=== PATIENT | male | born 1975 | race Caucasian/White ===

== ENCOUNTER 2022-02-01 11:27 | Inpatient (IN) | payer MEDICAID ==
[~2022-02-01] VITALS: Ht 154.9 cm; Wt 54.0 kg
[2022-02-01 11:36] VITALS: BP_SYST 122
[2022-02-01] MEDS ORDERED: NACL 0.9% 1,000 ML IV ONE ×3 (12:15→14:15)
[2022-02-01 12:38] LABS: BASOPHILS % (AUTO) 0.2 % (0.0-2.0); HEMATOCRIT 49.1 % (36-54); HEMOGLOBIN 16.9 g/dL (14.0-18.0); LYMPHOCYTES # (AUTO) 0.4 K/uL (1.0-5.5); LYMPHOCYTES % (AUTO) 2.9 % (20.5-51.5); MEAN CORPUSCULAR HEMOGLOBIN 31 pg (27-31); MEAN CORPUSCULAR HGB CONC 35 % (32-36); MEAN CORPUSCULAR VOLUME 89 fL (79.0-98.0); MONOCYTES # (AUTO) 0.5 K/uL (0.0-1.0); MONOCYTES % (AUTO) 3.6 % (1.7-9.3); NEUTROPHILS # (AUTO) 11.7 K/uL (1.8-7.7); NEUTROPHILS % (AUTO) 93.3 % (40.0-70.0); PLATELET COUNT (AUTO) 217 K/uL (130-430); RED BLOOD CELL COUNT(AUTO) 5.54 MIL/uL (4.2-6.2); WHITE BLOOD COUNT (AUTO) 12.5 K/uL (4.8-10.8)
[2022-02-01 13:16] LABS: ANION GAP 17 (5-15); CALCIUM 8.6 mg/dL (8.4-11.0); CHLORIDE 93 mmol/L (98-107); CREATININE 1.22 mg/dL (0.55-1.30); UREA NITROGEN, BLOOD 51 mg/dL (8-21)
[2022-02-01 13:20] LABS: ALANINE AMINOTRANSFERASE 49 U/L (12-78); ALBUMIN 3.9 g/dL (3.4-4.8); ASPARTATE AMINOTRANSFERASE 26 U/L (10-37); TOTAL BILIRUBIN 0.9 mg/dL (0.0-1.0)
[2022-02-01 13:25] LABS: ALCOHOL, BLOOD < 3 mg/dL (<10); GFR AFRICAN AMERICAN 82 mL/min (>90)
[2022-02-01 13:31] LABS: GLUCOSE 567 mg/dL (70-99)
[2022-02-01] MEDS ORDERED: cefTRIAXone 1 GM IVPB PREMIX 50 ML IV ONE (14:15)
[2022-02-01] MEDS ORDERED: INSULIN REGULAR, HUMAN 100 UNITS/ML, 3 ML VIAL IV ONE (14:15)
[2022-02-01] MEDS ORDERED: DEXTROSE 50% JECT 50 ML DISP.SYRIN IVP PRN (14:15)
[2022-02-01] MEDS ORDERED: INSULIN NPH 100 UNITS/ML 10 ML VIAL SUBCUT ONE (14:15)
[2022-02-01 14:43] LABS: BILIRUBIN,URINE NEGATIVE (NEGATIVE); BLOOD, URINE NEGATIVE (NEGATIVE); CLARITY/URINE CLEAR (CLEAR); COLOR,URINE YELLOW (YELLOW); GLUCOSE,URINE 3+ (NEGATIVE); KETONES,URINE 1+ (NEGATIVE); LEUKOCYTE ESTERASE ,URINE NEGATIVE (NEGATIVE); NITRITE, URINE NEGATIVE (NEGATIVE); PH,URINE 5.5 (5.0-8.0); PROTEIN URINE NEGATIVE (NEGATIVE); UROBILINOGEN,URINE 0.2 (0.2-1.0)
[2022-02-01] MEDS ORDERED: LORazepam 2 MG/ML VIAL IM ONE ×2 (14:45→15:30)
[2022-02-01 14:55] LABS: BARBITURATE, URINE NEGATIVE (NEG <=200); BENZODIAZEPINE, URINE NEGATIVE (NEG <=150); CANNABINOID, URINE NEGATIVE (NEG <=50); COCAINE, URINE NEGATIVE (NEG <=150); METHAMPHETAMINES SCREEN,URINE NEGATIVE (NEG <=500); OPIATE, URINE NEGATIVE (NEG <=100); PHENCYCLIDINE SCREEN,URINE NEGATIVE (NEG <=25); UR TRICYCLIC ANTIDEPRESSANTS NEGATIVE (NEG <=300); URINE AMPHETAMINE NEGATIVE (NEG <=500); URINE METHADONE NEGATIVE (NEG <=200); URINE OXYCODONE SCREEN NEGATIVE (NEG <=100); URINE PROPOXYPHENE SCREEN NEGATIVE (NEG <=300)
[2022-02-01 14:56] LABS: BACTERIA,URINE None Seen /HPF (None Seen); MUCUS,URINE None Seen /LPF (None Seen); RBC,URINE 0-3 /HPF (0-3); WBC,URINE NONE SEEN /HPF (0-3)
[2022-02-01] MEDS ORDERED: HALOPERIDOL LACTATE 5 MG/ML VIAL IM ONE (15:30)
[2022-02-01] MEDS ORDERED: LORazepam 2 MG/ML VIAL ONE (15:35)
[2022-02-01] MEDS ORDERED: HALOPERIDOL LACTATE 5 MG/ML VIAL ONE (15:35)
[2022-02-01] MEDS ORDERED: BENZTROPINE MESYLATE 2 MG/ 2 ML AMP ONE (15:37)
[2022-02-01] MEDS ORDERED: BENZTROPINE MESYLATE 2 MG/ 2 ML AMP IM ONE (15:45)
[2022-02-01 17:31] LABS: CALCIUM 8.2 mg/dL (8.4-11.0); CREATININE 1.43 mg/dL (0.55-1.30)
[2022-02-01] MEDS ORDERED: AZITHROMYCIN 500 MG/VIAL (ZITHROMAX) IV ONE (19:10)
[2022-02-01] MEDS: AZITHROMYCIN 500 MG in NS 250 ML IV SCH (19:27)
[2022-02-01] MEDS: NACL 0.9% 1,000 ML IV SCH (21:49)
[2022-02-01 22:50] VITALS: BP_SYST 116
[2022-02-01] MEDS ORDERED: CETI10CA20 PO (23:18)
[2022-02-01] MEDS ORDERED: LISI10TA29 PO (23:18)
[2022-02-01] MEDS ORDERED: FAMO40TA7 PO (23:18)
[2022-02-01] MEDS ORDERED: METF-518 PO (23:18)
[2022-02-01] MEDS ORDERED: BUSP10TA3 PO (23:18)
[2022-02-01] MEDS ORDERED: ASCO500T20 PO (23:18)
[2022-02-01] MEDS ORDERED: TRAZ-250 PO (23:18)
[2022-02-01] MEDS ORDERED: ZINC220T4 PO (23:18)
[2022-02-01] MEDS ORDERED: MULT-1089 PO (23:18)
[2022-02-01] MEDS ORDERED: IBUP-1619 PO (23:18)
[2022-02-01] MEDS ORDERED: ACET325T53 PO (23:18)
[2022-02-01] MEDS ORDERED: CAT1PAT PO (23:18)
[2022-02-01] MEDS ORDERED: ALBU90AE2 INH (23:18)
[2022-02-02 00:20] VITALS: BP_SYST 115
[2022-02-02] MEDS: INSULIN REGULAR, HUMAN 100 UNITS/ML, 3 ML VIAL (humuLIN R) SUBCUT PRN ×3 (01:45→17:43)
[2022-02-02] MEDS: NACL 0.9% 1,000 ML IV SCH ×4 (02:15→22:24)
[2022-02-02] MEDS: LORazepam 2 MG/ML VIAL IVP PRN (02:54)
[2022-02-02 07:01] LABS: BASOPHILS % (AUTO) 0.1 % (0.0-2.0); HEMATOCRIT 45.5 % (36-54); HEMOGLOBIN 15.7 g/dL (14.0-18.0); LYMPHOCYTES # (AUTO) 0.8 K/uL (1.0-5.5); MEAN CORPUSCULAR HEMOGLOBIN 31 pg (27-31); MEAN CORPUSCULAR HGB CONC 35 % (32-36); MEAN CORPUSCULAR VOLUME 88 fL (79.0-98.0); MONOCYTES # (AUTO) 1.1 K/uL (0.0-1.0); MONOCYTES % (AUTO) 5.7 % (1.7-9.3); NEUTROPHILS # (AUTO) 17.7 K/uL (1.8-7.7); PLATELET COUNT (AUTO) 197 K/uL (130-430); RED BLOOD CELL COUNT(AUTO) 5.15 MIL/uL (4.2-6.2); RED CELL DISTRIBUTION WIDTH 12.9 % (9.0-15.0); WHITE BLOOD COUNT (AUTO) 19.6 K/uL (4.8-10.8)
[2022-02-02] MEDS ORDERED: METF-381 PO (07:03)
[2022-02-02] MEDS ORDERED: CLON0.1T PO (07:07)
[2022-02-02 07:15] LABS: ALBUMIN 3.2 g/dL (3.4-4.8); CALCIUM 7.5 mg/dL (8.4-11.0); PHOSPHORUS 2.7 mg/dL (2.7-4.5); TOTAL BILIRUBIN 0.7 mg/dL (0.0-1.0)
[2022-02-02 07:38] LABS: CREATININE 0.75 mg/dL (0.55-1.30)
[2022-02-02 11:44] VITALS: BP_SYST 131
[2022-02-02] MEDS ORDERED: IBUPROFEN 200 MG TABLET PO SCH (12:15)
[2022-02-02] MEDS ORDERED: ACETAMINOPHEN 325 MG TABLET PO PRN (12:15)
[2022-02-02] MEDS ORDERED: cloNIDine HCL 0.1 MG TABLET PO ONE (12:30)
[2022-02-02] MEDS ORDERED: busPIRone HCL 5 MG TABLET PO ONE (12:30)
[2022-02-02] MEDS ORDERED: LISINOPRIL 10 MG TABLET (PRINIVIL) PO ONE (12:30)
[2022-02-02] MEDS ORDERED: FAMOTIDINE 20 MG TABLET PO ONE (12:30)
[2022-02-02 13:04] LABS: NEUTROPHILS % (AUTO) 90.2 % (40.0-70.0)
[2022-02-02] MEDS: AZITHROMYCIN 500 MG in NS 250 ML IV SCH (17:25)
[2022-02-02] MEDS: busPIRone HCL 5 MG TABLET PO SCH ×2 (17:25→21:21)
[2022-02-02] MEDS: cefTRIAXone 1 GM in D5W 50 ML IV SCH (17:26)
[2022-02-02 18:02] VITALS: BP_SYST 100
[2022-02-02] MEDS ORDERED: traZODone HCL 50 MG TABLET (DESYREL) PO SCH (21:00)
[2022-02-02] MEDS: cloNIDine HCL 0.1 MG TABLET PO SCH (21:22)
[2022-02-02] MEDS: ASCORBIC ACID 500 MG TABLET PO SCH (21:22)
[2022-02-03 00:40] VITALS: BP_SYST 102
[2022-02-03 07:19] LABS: BASOPHILS % (AUTO) 0.3 % (0.0-2.0); EOSINOPHILS % (AUTO) 0.2 % (0.0-4.0); HEMATOCRIT 48.5 % (36-54); HEMOGLOBIN 16.7 g/dL (14.0-18.0); LYMPHOCYTES # (AUTO) 2.2 K/uL (1.0-5.5); MEAN CORPUSCULAR HEMOGLOBIN 31 pg (27-31); MEAN CORPUSCULAR HGB CONC 35 % (32-36); MEAN CORPUSCULAR VOLUME 88 fL (79.0-98.0); MONOCYTES # (AUTO) 0.8 K/uL (0.0-1.0); MONOCYTES % (AUTO) 4.5 % (1.7-9.3); PLATELET COUNT (AUTO) 162 K/uL (130-430); RED BLOOD CELL COUNT(AUTO) 5.49 MIL/uL (4.2-6.2); RED CELL DISTRIBUTION WIDTH 12.8 % (9.0-15.0); WHITE BLOOD COUNT (AUTO) 17.1 K/uL (4.8-10.8)
[2022-02-03 07:54] LABS: CALCIUM 7.7 mg/dL (8.4-11.0); CREATININE 0.72 mg/dL (0.55-1.30)
[2022-02-03 08:00] VITALS: BP_SYST 140
[2022-02-03] MEDS ORDERED: [UNRECOGNIZED DRUG - REMARK] PO SCH (09:00)
[2022-02-03] MEDS: cloNIDine HCL 0.1 MG TABLET PO SCH ×2 (10:27→20:15)
[2022-02-03] MEDS: ASCORBIC ACID 500 MG TABLET PO SCH ×2 (10:28→20:15)
[2022-02-03] MEDS: busPIRone HCL 5 MG TABLET PO SCH ×3 (10:28→20:15)
[2022-02-03] MEDS: MULTIVITAMINS TAB 1 TABLET PO SCH (10:28)
[2022-02-03] MEDS: FAMOTIDINE 20 MG TABLET PO SCH (10:29)
[2022-02-03] MEDS: LORATADINE 10 MG TABLET PO SCH (10:29)
[2022-02-03] MEDS: LISINOPRIL 10 MG TABLET (PRINIVIL) PO SCH (10:29)
[2022-02-03 11:28] VITALS: BP_SYST 103
[2022-02-03] MEDS: NACL 0.9% 1,000 ML IV SCH ×2 (12:23→18:52)
[2022-02-03] MEDS: INSULIN REGULAR, HUMAN 100 UNITS/ML, 3 ML VIAL (humuLIN R) SUBCUT PRN ×2 (12:40→18:53)
[2022-02-03] MEDS ORDERED: INSULIN NPH 100 UNITS/ML 10 ML VIAL SUBCUT SCH (13:15)
[2022-02-03] MEDS ORDERED: FAMO40TA7 PO (13:28)
[2022-02-03] MEDS ORDERED: BLOO-1360 XX (13:28)
[2022-02-03] MEDS ORDERED: INSU100V7 SUBCUT (13:28)
[2022-02-03] MEDS ORDERED: busPIRone HCL 5 MG TABLET PO SCH (15:00)
[2022-02-03 15:25] VITALS: BP_SYST 144
[2022-02-03] MEDS: INSULIN NPH 100 UNITS/ML 10 ML VIAL SUBCUT SCH (17:00)
[2022-02-03] MEDS: AZITHROMYCIN 500 MG in NS 250 ML IV SCH (18:50)
[2022-02-03] MEDS: traZODone HCL 50 MG TABLET (DESYREL) PO SCH (18:50)
[2022-02-03] MEDS: cefTRIAXone 1 GM in D5W 50 ML IV SCH (18:51)
[2022-02-03 20:00] VITALS: BP_SYST 108
[2022-02-04 00:19] VITALS: BP_SYST 110
[2022-02-04] MEDS: INSULIN NPH 100 UNITS/ML 10 ML VIAL SUBCUT SCH ×2 (05:25→17:25)
[2022-02-04 06:46] LABS: BASOPHILS % (AUTO) 0.1 % (0.0-2.0); EOSINOPHILS % (AUTO) 0.1 % (0.0-4.0); HEMATOCRIT 50.6 % (36-54); HEMOGLOBIN 17.5 g/dL (14.0-18.0); LYMPHOCYTES # (AUTO) 1.3 K/uL (1.0-5.5); LYMPHOCYTES % (AUTO) 8.1 % (20.5-51.5); MEAN CORPUSCULAR HEMOGLOBIN 31 pg (27-31); MEAN CORPUSCULAR HGB CONC 35 % (32-36); MEAN CORPUSCULAR VOLUME 88 fL (79.0-98.0); MONOCYTES # (AUTO) 0.7 K/uL (0.0-1.0); MONOCYTES % (AUTO) 4.2 % (1.7-9.3); NEUTROPHILS # (AUTO) 14.1 K/uL (1.8-7.7); NEUTROPHILS % (AUTO) 87.5 % (40.0-70.0); PLATELET COUNT (AUTO) 157 K/uL (130-430); RED BLOOD CELL COUNT(AUTO) 5.73 MIL/uL (4.2-6.2); WHITE BLOOD COUNT (AUTO) 16.1 K/uL (4.8-10.8)
[2022-02-04 07:03] LABS: CALCIUM 8.3 mg/dL (8.4-11.0); CREATININE 0.68 mg/dL (0.55-1.30)
[2022-02-04 08:00] VITALS: BP_SYST 131
[2022-02-04] MEDS: LORATADINE 10 MG TABLET PO SCH (09:13)
[2022-02-04] MEDS: MULTIVITAMINS TAB 1 TABLET PO SCH (09:13)
[2022-02-04] MEDS: cloNIDine HCL 0.1 MG TABLET PO SCH ×2 (09:16→20:30)
[2022-02-04] MEDS: FAMOTIDINE 20 MG TABLET PO SCH (09:16)
[2022-02-04] MEDS: busPIRone HCL 5 MG TABLET PO SCH ×3 (09:16→20:29)
[2022-02-04] MEDS: LISINOPRIL 10 MG TABLET (PRINIVIL) PO SCH (09:17)
[2022-02-04] MEDS: ASCORBIC ACID 500 MG TABLET PO SCH ×2 (09:17→20:29)
[2022-02-04] MEDS: INSULIN REGULAR, HUMAN 100 UNITS/ML, 3 ML VIAL (humuLIN R) SUBCUT PRN ×2 (11:42→17:24)
[2022-02-04 12:00] VITALS: BP_SYST 121
[2022-02-04] MEDS: cefTRIAXone 1 GM in D5W 50 ML IV SCH (14:18)
[2022-02-04] MEDS: AZITHROMYCIN 500 MG in NS 250 ML IV SCH (15:45)
[2022-02-04 16:00] VITALS: BP_SYST 116
[2022-02-04] MEDS: traZODone HCL 50 MG TABLET (DESYREL) PO SCH (17:27)
[2022-02-04 20:00] VITALS: BP_SYST 145
[2022-02-04] MEDS: NACL 0.9% 1,000 ML IV SCH ×2 (20:28→20:32)
[2022-02-05] MEDS: NACL 0.9% 1,000 ML IV SCH ×2 (00:40→11:19)
[2022-02-05 01:06] VITALS: BP_SYST 107
[2022-02-05] MEDS: INSULIN NPH 100 UNITS/ML 10 ML VIAL SUBCUT SCH ×2 (06:37→17:35)
[2022-02-05 08:00] VITALS: BP_SYST 134
[2022-02-05] MEDS: LISINOPRIL 10 MG TABLET (PRINIVIL) PO SCH (08:57)
[2022-02-05] MEDS: MULTIVITAMINS TAB 1 TABLET PO SCH (08:58)
[2022-02-05] MEDS: FAMOTIDINE 20 MG TABLET PO SCH (08:58)
[2022-02-05] MEDS: busPIRone HCL 5 MG TABLET PO SCH ×3 (08:58→21:14)
[2022-02-05] MEDS: ASCORBIC ACID 500 MG TABLET PO SCH ×2 (08:58→21:13)
[2022-02-05] MEDS: cloNIDine HCL 0.1 MG TABLET PO SCH ×2 (08:58→21:14)
[2022-02-05] MEDS: LORATADINE 10 MG TABLET PO SCH (08:59)
[2022-02-05 12:00] VITALS: BP_SYST 142
[2022-02-05 12:51] LABS: BASOPHILS # (AUTO) 0.1 K/uL (0.0-0.2); BASOPHILS % (AUTO) 0.6 % (0.0-2.0); EOSINOPHILS # (AUTO) 0.1 K/uL (0.0-0.4); EOSINOPHILS % (AUTO) 0.5 % (0.0-4.0); HEMATOCRIT 46.4 % (36-54); HEMOGLOBIN 16.4 g/dL (14.0-18.0); LYMPHOCYTES # (AUTO) 1.7 K/uL (1.0-5.5); LYMPHOCYTES % (AUTO) 8.6 % (20.5-51.5); MEAN CORPUSCULAR HEMOGLOBIN 31 pg (27-31); MEAN CORPUSCULAR HGB CONC 35 % (32-36); MEAN CORPUSCULAR VOLUME 87 fL (79.0-98.0); MONOCYTES # (AUTO) 0.7 K/uL (0.0-1.0); MONOCYTES % (AUTO) 3.3 % (1.7-9.3); NEUTROPHILS # (AUTO) 17.5 K/uL (1.8-7.7); PLATELET COUNT (AUTO) 164 K/uL (130-430); RED BLOOD CELL COUNT(AUTO) 5.36 MIL/uL (4.2-6.2); RED CELL DISTRIBUTION WIDTH 12.4 % (9.0-15.0); WHITE BLOOD COUNT (AUTO) 20.1 K/uL (4.8-10.8)
[2022-02-05 13:06] LABS: CALCIUM 8.4 mg/dL (8.4-11.0); CREATININE 0.69 mg/dL (0.55-1.30)
[2022-02-05 16:00] VITALS: BP_SYST 157
[2022-02-05] MEDS: cephALEXin 500 MG CAPSULE PO SCH ×2 (17:29→23:32)
[2022-02-05] MEDS: traZODone HCL 50 MG TABLET (DESYREL) PO SCH (17:29)
[2022-02-05] MEDS: INSULIN REGULAR, HUMAN 100 UNITS/ML, 3 ML VIAL (humuLIN R) SUBCUT PRN (17:34)
[2022-02-05 20:00] VITALS: BP_SYST 129
[2022-02-05] MEDS: LORazepam 2 MG/ML VIAL IVP PRN (21:16)
[2022-02-06 00:34] VITALS: BP_SYST 110; BP_SYST 68
[2022-02-06 04:00] VITALS: BP_SYST 137
[2022-02-06] MEDS: cephALEXin 500 MG CAPSULE PO SCH ×4 (05:51→23:52)
[2022-02-06] MEDS: INSULIN NPH 100 UNITS/ML 10 ML VIAL SUBCUT SCH ×2 (06:28→17:00)
[2022-02-06 07:04] LABS: BASOPHILS # (AUTO) 0.1 K/uL (0.0-0.2); BASOPHILS % (AUTO) 0.3 % (0.0-2.0); EOSINOPHILS # (AUTO) 0.1 K/uL (0.0-0.4); EOSINOPHILS % (AUTO) 0.5 % (0.0-4.0); HEMATOCRIT 44.8 % (36-54); HEMOGLOBIN 15.6 g/dL (14.0-18.0); LYMPHOCYTES # (AUTO) 2.1 K/uL (1.0-5.5); MEAN CORPUSCULAR HEMOGLOBIN 30 pg (27-31); MEAN CORPUSCULAR HGB CONC 35 % (32-36); MEAN CORPUSCULAR VOLUME 87 fL (79.0-98.0); MONOCYTES # (AUTO) 0.7 K/uL (0.0-1.0); MONOCYTES % (AUTO) 3.4 % (1.7-9.3); NEUTROPHILS # (AUTO) 17.9 K/uL (1.8-7.7); NEUTROPHILS % (AUTO) 85.8 % (40.0-70.0); PLATELET COUNT (AUTO) 170 K/uL (130-430); RED BLOOD CELL COUNT(AUTO) 5.15 MIL/uL (4.2-6.2); RED CELL DISTRIBUTION WIDTH 12.6 % (9.0-15.0); WHITE BLOOD COUNT (AUTO) 20.9 K/uL (4.8-10.8)
[2022-02-06 07:55] LABS: CALCIUM 8.6 mg/dL (8.4-11.0); CREATININE 0.74 mg/dL (0.55-1.30)
[2022-02-06 08:00] VITALS: BP_SYST 154
[2022-02-06] MEDS: LISINOPRIL 10 MG TABLET (PRINIVIL) PO SCH (09:52)
[2022-02-06] MEDS: MULTIVITAMINS TAB 1 TABLET PO SCH (09:53)
[2022-02-06] MEDS: cloNIDine HCL 0.1 MG TABLET PO SCH ×2 (09:53→22:17)
[2022-02-06] MEDS: ASCORBIC ACID 500 MG TABLET PO SCH ×2 (09:54→22:17)
[2022-02-06] MEDS: LORATADINE 10 MG TABLET PO SCH (09:56)
[2022-02-06] MEDS: FAMOTIDINE 20 MG TABLET PO SCH (09:59)
[2022-02-06] MEDS: busPIRone HCL 5 MG TABLET PO SCH ×3 (09:59→22:17)
[2022-02-06 11:22] VITALS: BP_SYST 155
[2022-02-06 16:21] VITALS: BP_SYST 149
[2022-02-06] MEDS: traZODone HCL 50 MG TABLET (DESYREL) PO SCH (17:41)
[2022-02-06 20:00] VITALS: BP_SYST 150
[2022-02-07] MEDS: cephALEXin 500 MG CAPSULE PO SCH ×2 (07:05→12:47)
[2022-02-07] MEDS: INSULIN NPH 100 UNITS/ML 10 ML VIAL SUBCUT SCH (07:07)
[2022-02-07 07:36] LABS: CALCIUM 8.6 mg/dL (8.4-11.0); CREATININE 0.81 mg/dL (0.55-1.30)
[2022-02-07 08:00] VITALS: BP_SYST 126
[2022-02-07] MEDS: MULTIVITAMINS TAB 1 TABLET PO SCH (08:21)
[2022-02-07] MEDS: LORATADINE 10 MG TABLET PO SCH (08:21)
[2022-02-07] MEDS: ASCORBIC ACID 500 MG TABLET PO SCH ×2 (08:22→21:23)
[2022-02-07] MEDS: busPIRone HCL 5 MG TABLET PO SCH ×3 (08:22→21:24)
[2022-02-07] MEDS: LISINOPRIL 10 MG TABLET (PRINIVIL) PO SCH (08:22)
[2022-02-07] MEDS: FAMOTIDINE 20 MG TABLET PO SCH (08:22)
[2022-02-07] MEDS: cloNIDine HCL 0.1 MG TABLET PO SCH ×2 (08:23→21:23)
[2022-02-07 08:24] LABS: BASOPHILS % (AUTO) 0.3 % (0.0-2.0); EOSINOPHILS # (AUTO) 0.1 K/uL (0.0-0.4); EOSINOPHILS % (AUTO) 0.5 % (0.0-4.0); HEMOGLOBIN 16.2 g/dL (14.0-18.0); LYMPHOCYTES # (AUTO) 2.2 K/uL (1.0-5.5); LYMPHOCYTES % (AUTO) 11.9 % (20.5-51.5); MEAN CORPUSCULAR HEMOGLOBIN 31 pg (27-31); MEAN CORPUSCULAR HGB CONC 35 % (32-36); MEAN CORPUSCULAR VOLUME 88 fL (79.0-98.0); MONOCYTES # (AUTO) 0.9 K/uL (0.0-1.0); MONOCYTES % (AUTO) 4.7 % (1.7-9.3); NEUTROPHILS % (AUTO) 82.6 % (40.0-70.0); PLATELET COUNT (AUTO) 169 K/uL (130-430); RED BLOOD CELL COUNT(AUTO) 5.26 MIL/uL (4.2-6.2); RED CELL DISTRIBUTION WIDTH 12.7 % (9.0-15.0); WHITE BLOOD COUNT (AUTO) 18.2 K/uL (4.8-10.8)
[2022-02-07] MEDS ORDERED: GLIP5TAB13 PO (11:31)
[2022-02-07 11:33] VITALS: BP_SYST 148
[2022-02-07] MEDS ORDERED: CEPH-548 PO (11:34)
[2022-02-07 15:30] VITALS: BP_SYST 98
[2022-02-07] MEDS: traZODone HCL 50 MG TABLET (DESYREL) PO SCH (18:16)
[2022-02-07 20:00] VITALS: BP_SYST 136
[2022-02-08 08:00] VITALS: BP_SYST 133
[2022-02-08] MEDS: MULTIVITAMINS TAB 1 TABLET PO SCH (08:19)
[2022-02-08] MEDS: LISINOPRIL 10 MG TABLET (PRINIVIL) PO SCH (08:20)
[2022-02-08] MEDS: FAMOTIDINE 20 MG TABLET PO SCH (08:20)
[2022-02-08] MEDS: LORATADINE 10 MG TABLET PO SCH (08:20)
[2022-02-08] MEDS: ASCORBIC ACID 500 MG TABLET PO SCH (08:20)
[2022-02-08] MEDS: busPIRone HCL 5 MG TABLET PO SCH ×2 (08:20→14:06)
[2022-02-08] MEDS: cloNIDine HCL 0.1 MG TABLET PO SCH ×2 (08:21→20:46)
[2022-02-08 11:38] VITALS: BP_SYST 111
[2022-02-08 13:44] LABS: BASOPHILS % (AUTO) 0.2 % (0.0-2.0); EOSINOPHILS # (AUTO) 0.1 K/uL (0.0-0.4); EOSINOPHILS % (AUTO) 0.3 % (0.0-4.0); HEMATOCRIT 48.1 % (36-54); HEMOGLOBIN 16.6 g/dL (14.0-18.0); LYMPHOCYTES # (AUTO) 1.7 K/uL (1.0-5.5); LYMPHOCYTES % (AUTO) 10.3 % (20.5-51.5); MEAN CORPUSCULAR HEMOGLOBIN 30 pg (27-31); MEAN CORPUSCULAR HGB CONC 35 % (32-36); MEAN CORPUSCULAR VOLUME 87 fL (79.0-98.0); MONOCYTES # (AUTO) 1.3 K/uL (0.0-1.0); MONOCYTES % (AUTO) 7.6 % (1.7-9.3); NEUTROPHILS # (AUTO) 13.6 K/uL (1.8-7.7); NEUTROPHILS % (AUTO) 81.6 % (40.0-70.0); PLATELET COUNT (AUTO) 194 K/uL (130-430); RED BLOOD CELL COUNT(AUTO) 5.53 MIL/uL (4.2-6.2); RED CELL DISTRIBUTION WIDTH 12.7 % (9.0-15.0); WHITE BLOOD COUNT (AUTO) 16.6 K/uL (4.8-10.8)
[2022-02-08 15:24] VITALS: BP_SYST 115
[2022-02-08 16:41] VITALS: BP_SYST 115
[2022-02-08] MEDS ORDERED: cloNIDine HCL 0.1 MG TABLET PO PRN (17:15)
[2022-02-08] MEDS: traZODone HCL 50 MG TABLET (DESYREL) PO SCH (18:14)
[2022-02-08 20:41] VITALS: BP_SYST 120
[2022-02-08] MEDS: LORazepam 2 MG/ML VIAL IVP PRN (20:48)
[2022-02-09 02:24] VITALS: BP_SYST 85
[2022-02-09 06:55] LABS: BASOPHILS % (AUTO) 0.4 % (0.0-2.0); EOSINOPHILS # (AUTO) 0.1 K/uL (0.0-0.4); EOSINOPHILS % (AUTO) 0.6 % (0.0-4.0); HEMATOCRIT 47.4 % (36-54); HEMOGLOBIN 16.6 g/dL (14.0-18.0); LYMPHOCYTES # (AUTO) 1.8 K/uL (1.0-5.5); LYMPHOCYTES % (AUTO) 15.5 % (20.5-51.5); MEAN CORPUSCULAR HEMOGLOBIN 31 pg (27-31); MEAN CORPUSCULAR HGB CONC 35 % (32-36); MEAN CORPUSCULAR VOLUME 87 fL (79.0-98.0); MONOCYTES # (AUTO) 0.8 K/uL (0.0-1.0); MONOCYTES % (AUTO) 6.6 % (1.7-9.3); NEUTROPHILS # (AUTO) 8.9 K/uL (1.8-7.7); NEUTROPHILS % (AUTO) 76.9 % (40.0-70.0); PLATELET COUNT (AUTO) 191 K/uL (130-430); RED BLOOD CELL COUNT(AUTO) 5.43 MIL/uL (4.2-6.2); RED CELL DISTRIBUTION WIDTH 12.6 % (9.0-15.0); WHITE BLOOD COUNT (AUTO) 11.6 K/uL (4.8-10.8)
[2022-02-09 07:04] LABS: ALBUMIN 3.1 g/dL (3.4-4.8); C-REACTIVE PROTEIN QUANT 0.7 mg/dL (0-0.5); CALCIUM 8.4 mg/dL (8.4-11.0); CREATININE 0.92 mg/dL (0.55-1.30); TOTAL BILIRUBIN 0.4 mg/dL (0.0-1.0)
[2022-02-09 08:00] VITALS: BP_SYST 125
[2022-02-09] MEDS: MULTIVITAMINS TAB 1 TABLET PO SCH (08:58)
[2022-02-09] MEDS: cloNIDine HCL 0.1 MG TABLET PO SCH (09:00)
[2022-02-09] MEDS ORDERED: FAMOTIDINE 20 MG TABLET PO SCH (09:00)
[2022-02-09 11:24] VITALS: BP_SYST 103
[2022-02-09 11:43] LABS: ERYTHROCYTE SEDIMENTATION RATE 7 MM/HR (0-15)
[2022-02-09] MEDS ORDERED: FLUCONAZOLE 100 mg/ NS 50 ML IV SCH (13:00)
== END 2022-02-09 14:15 | DRG 420 ==
LOC: SED 11:27 → SIC 14:07 → STU 22:20 → SMU 02-02 10:28
PROVIDERS: ADMIT Internal Medicine; ATTEND Internal Medicine
DX: E11.10 Type 2 diabetes mellitus with ketoacidosis without coma (principal); N17.0 Acute kidney failure with tubular necrosis; E44.1 Mild protein-calorie malnutrition; E87.1 Hypo-osmolality and hyponatremia; E86.0 Dehydration; I48.0 Paroxysmal atrial fibrillation; J18.9 Pneumonia, unspecified organism; E55.9 Vitamin D deficiency, unspecified; E87.5 Hyperkalemia; Z20.822 Contact with and (suspected) exposure to COVID-19; J02.9 Acute pharyngitis, unspecified; J45.909 Unspecified asthma, uncomplicated; U09.9 Post COVID-19 condition, unspecified; F79 Unspecified intellectual disabilities; Z79.01 Long term (current) use of anticoagulants; Z79.4 Long term (current) use of insulin; Z68.22 Body mass index [BMI] 22.0-22.9, adult
CPT/HCPCS: 36415; 70450-TC; 71045; 76376; 80048; 80053; 80307; 81000; 82009; 82962; 83036; 83735; 84100; 84484; 85025; 85651-TC; 86140; 87081; 93005; 99285; G0378; G0482; J0456; J0515; J0696; J1450; J1630; J1815; J2060; J7030; J7050; J7060